=== PATIENT | female | born 1930 | race Caucasian/White ===

== ENCOUNTER 2017-09-10 09:18 | Inpatient (IN) | payer OTHER ==
[~2017-09-10] VITALS: Ht 157.5 cm; Wt 70.0 kg
[2017-09-10 09:50] LABS: BASOPHILS % (AUTO) 0.1 % (0-1); EOSINOPHILS % (AUTO) 0.1 % (0-6); HEMATOCRIT 39.2 % (35.0-45.0); HEMOGLOBIN 13.3 g/dl (12.0-16.0); LYMPHOCYTES # (AUTO) 0.4 X10'3 (1.1-4.8); LYMPHOCYTES % (AUTO) 5.8 % (21-51); MEAN CORPUSCULAR HEMOGLOBIN 29.8 PG (27.0-31.0); MEAN CORPUSCULAR VOLUME 87.5 FL (78-98); MEAN PLATELET VOLUME 7.7 FL (7.4-10.4); MONOCYTES # (AUTO) 0.5 X10'3 (0-0.9); MONOCYTES % (AUTO) 6.8 % (2-12); NEUTROPHILS # (AUTO) 6.3 X10'3 (1.8-7.7); NEUTROPHILS % (AUTO) 87.2 % (42-75); PLATELET COUNT 219 X10'3 (140-440); RED BLOOD COUNT 4.48 X10'6 (4.20-5.60); RED CELL DISTRIBUTION WIDTH 13.5 % (11.5-14.5); WHITE BLOOD COUNT 7.2 X10'3 (4.5-11.0)
[2017-09-10 10:08] LABS: ALANINE AMINOTRANSFERASE 33 U/L (12-78); ALBUMIN 3.8 G/DL (3.4-5.0); ALBUMIN/GLOBULIN RATIO 1.2 (1.1-1.5); ALKALINE PHOSPHATASE 84 IU/L (46-116); ANION GAP 12 (8-16); ASPARTATE AMINO TRANSFERASE 26 U/L (10-37); BILIRUBIN,TOTAL 0.7 MG/DL (0.1-1.0); BLOOD UREA NITROGEN 13 MG/DL (7-18); BUN/CREATININE RATIO 14.4 (6.6-38.0); CALCIUM 8.8 MG/DL (8.5-10.1); CHLORIDE 103 MMOL/L (99-107); SODIUM 141 MMOL/L (135-145); TOTAL CARBON DIOXIDE 25.8 MMOL/L (24-32); TOTAL PROTEIN 7.1 G/DL (6.4-8.2); eGFR 59 ML/MIN
[2017-09-10 10:15] LABS: PLATELET ESTIMATE NORMAL; TOTAL CELLS COUNTED 100
[2017-09-10 10:38] LABS: GLUCOSE 138 MG/DL (70-104)
[2017-09-10] MEDS ORDERED: levoFLOXACIN-Levaquin 500mg/D5 100 ML IV ONE (12:00)
[2017-09-10] MEDS ORDERED: albuterol 2.5 MG/3 ML nebule NEB ONE (12:00)
[2017-09-10] MEDS ORDERED: TURM500C4 (12:24)
[2017-09-10] MEDS ORDERED: LEVO50TA PO (12:24)
[2017-09-10] MEDS ORDERED: ROSU5TAB18 (12:24)
[2017-09-10] MEDS ORDERED: FISH12002 PO (12:24)
[2017-09-10] MEDS ORDERED: SERIN IH (12:24)
[2017-09-10] MEDS ORDERED: ASPI-1265 PO (12:24)
[2017-09-10] MEDS ORDERED: AMLO5TAB4 PO (12:24)
[2017-09-10] MEDS ORDERED: OSC500T PO (12:24)
[2017-09-10] MEDS ORDERED: ALT5C PO (12:24)
[2017-09-10] MEDS ORDERED: UBID100C16 PO (12:24)
[2017-09-10] MEDS ORDERED: MELA3TAB70 (12:24)
[2017-09-10] MEDS ORDERED: GABA600T2 PO (12:24)
[2017-09-10] MEDS ORDERED: MAGN400C PO (12:24)
[2017-09-10] MEDS ORDERED: ACET-2119 PO (12:24)
[2017-09-10] MEDS ORDERED: IBUP-1984 PO (12:24)
[2017-09-10] MEDS ORDERED: VIT1CAPS46 (12:27)
[2017-09-10] MEDS ORDERED: CYAN100097 PO (12:27)
[2017-09-10] MEDS ORDERED: oseltamivir phos 75mg capsule PO ONE (12:55)
[2017-09-10] MEDS ORDERED: ipratropium/albuterol 3ml nebule NEB PRN (13:20)
[2017-09-10] MEDS ORDERED: mag hydrox/Alum hydrox/simeth 30ml oral suspension PO PRN (13:20)
[2017-09-10] MEDS ORDERED: ondansetron/PF 4mg/2ml inj IV PRN (13:20)
[2017-09-10] MEDS ORDERED: acetaminophen 325mg tablet PO PRN ×3 (13:20→17:45)
[2017-09-10] MEDS ORDERED: HYDROcodone/acetaminophen 5mg/325mg tablet PO PRN (13:20)
[2017-09-10] MEDS ORDERED: magnesium hydroxide 30ml (MOM) UD suspension PO PRN (13:20)
[2017-09-10] MEDS: methylPREDNISolone sod succ/PF 40mg inj. IV SCH ×2 (13:45→20:07)
[2017-09-10 13:53] LABS: HEMOGLOBIN A1C 5.6 % (4.5-6.2)
[2017-09-10 15:00] VITALS: BP 116/54
[2017-09-10 18:00] VITALS: BP 117/61
[2017-09-10] MEDS ORDERED: SALMETEROL XINAFOATE IH SCH (20:00)
[2017-09-10] MEDS ORDERED: MAGNESIUM OXIDE PO SCH (20:00)
[2017-09-10] MEDS: magnesium oxide 400mg tablet PO SCH (20:08)
[2017-09-10] MEDS: oseltamivir phos 75mg capsule PO SCH (20:08)
[2017-09-10] MEDS: gabapentin 300mg capsule PO SCH (20:51)
[2017-09-10] MEDS ORDERED: albuterol 2.5 MG/3 ML nebule NEB SCH (21:00)
[2017-09-10] MEDS ORDERED: gabapentin 300mg capsule PO SCH (21:00)
[2017-09-10 22:00] VITALS: BP 121/59
[2017-09-11] MEDS: methylPREDNISolone sod succ/PF 40mg inj. IV SCH ×2 (02:09→07:51)
[2017-09-11 06:00] VITALS: BP 158/79
[2017-09-11] MEDS ORDERED: levoTHYROXINE 25mcg tablet PO SCH (07:00)
[2017-09-11 07:26] LABS: BASOPHILS % (AUTO) 0.3 % (0-1); EOSINOPHILS % (AUTO) 0 % (0-6); HEMATOCRIT 36.5 % (35.0-45.0); LYMPHOCYTES # (AUTO) 0.6 X10'3 (1.1-4.8); LYMPHOCYTES % (AUTO) 12.4 % (21-51); MEAN CORPUSCULAR HEMOGLOBIN 30.9 PG (27.0-31.0); MEAN CORPUSCULAR HGB CONC 35.6 % (33.0-36.5); MEAN CORPUSCULAR VOLUME 86.7 FL (78-98); MEAN PLATELET VOLUME 8.2 FL (7.4-10.4); MONOCYTES # (AUTO) 0.1 X10'3 (0-0.9); MONOCYTES % (AUTO) 3.1 % (2-12); NEUTROPHILS # (AUTO) 3.9 X10'3 (1.8-7.7); NEUTROPHILS % (AUTO) 84.2 % (42-75); PLATELET COUNT 193 X10'3 (140-440); RED CELL DISTRIBUTION WIDTH 12.1 % (11.5-14.5); WHITE BLOOD COUNT 4.6 X10'3 (4.5-11.0)
[2017-09-11 07:42] LABS: ALANINE AMINOTRANSFERASE 40 U/L (12-78); ALBUMIN 3.5 G/DL (3.4-5.0); ALKALINE PHOSPHATASE 77 IU/L (46-116); ANION GAP 10 (8-16); ASPARTATE AMINO TRANSFERASE 28 U/L (10-37); BILIRUBIN,TOTAL 0.4 MG/DL (0.1-1.0); BLOOD UREA NITROGEN 18 MG/DL (7-18); BUN/CREATININE RATIO 22.5 (6.6-38.0); CALCIUM 8.3 MG/DL (8.5-10.1); CHLORIDE 106 MMOL/L (99-107); CHOL/HDL RATIO 2.5 (0.00-4.99); CHOLESTEROL 183 MG/DL (0-200); GLUCOSE 187 MG/DL (70-104); HDL CHOLESTEROL 72 MG/DL (35-60); LDL CHOLESTEROL 102 MG/DL (50-100); POTASSIUM 3.9 MMOL/L (3.5-5.1); SODIUM 143 MMOL/L (135-145); TOTAL PROTEIN 6.9 G/DL (6.4-8.2); TRIGLYCERIDES 40 MG/DL (20-135); eGFR 68 ML/MIN
[2017-09-11] MEDS: gabapentin 300mg capsule PO SCH ×2 (07:55→13:46)
[2017-09-11] MEDS: oseltamivir phos 75mg capsule PO SCH (07:57)
[2017-09-11] MEDS ORDERED: cyanocobalamin 500mcg tablet PO SCH (08:00)
[2017-09-11] MEDS ORDERED: gabapentin 400mg capsule PO SCH (08:00)
[2017-09-11] MEDS ORDERED: aspirin 81mg tab.chew PO SCH (08:00)
[2017-09-11] MEDS ORDERED: amLODIPine 5mg tablet PO SCH (08:00)
[2017-09-11] MEDS ORDERED: calcium carbonate 500mg tablet PO SCH (08:00)
[2017-09-11] MEDS ORDERED: non-formulary drug (Levothyroxine Sodium (Synthroid) 1 TAB) PO SCH (08:00)
[2017-09-11] MEDS ORDERED: non-formulary drug (Fish Oil/Borage/Flax/Om3,6,9#1 (Omega 3-6-9 1,200 mg Softgel) 1 CAP) PO SCH (08:00)
[2017-09-11] MEDS ORDERED: RAMIPRIL 5 MG PO SCH (08:00)
[2017-09-11] MEDS ORDERED: levoFLOXACIN-Levaquin 500mg/D5 100 ML IV SCH (08:00)
[2017-09-11] MEDS ORDERED: non-formulary drug (Gabapentin 2 TAB) PO SCH (08:00)
[2017-09-11 10:00] VITALS: BP 136/72
[2017-09-11] MEDS: magnesium oxide 400mg tablet PO SCH (10:15)
[2017-09-11] MEDS ORDERED: TAM75C PO (10:29)
[2017-09-12] MEDS ORDERED: LACTOBACILLUS RHAMNOSUS GG 15 billion unit sprinkle caps PO SCH (07:30)
== END 2017-09-11 13:00 | disposition home or self-care (01) | DRG 193 ==
LOC: ER 09:19 → ED HOLD 13:20 → EDBEDREQ 14:17 → ORTHO 4S 15:07
PROVIDERS: ADMIT Internal Medicine; ATTEND Internal Medicine
DX: J09.X2 Influenza due to identified novel influenza A virus with other respiratory manifestations (principal); J96.01 Acute respiratory failure with hypoxia; J44.1 Chronic obstructive pulmonary disease with (acute) exacerbation; G62.9 Polyneuropathy, unspecified; E03.9 Hypothyroidism, unspecified; E78.5 Hyperlipidemia, unspecified; G89.4 Chronic pain syndrome; I10 Essential (primary) hypertension; K21.9 Gastro-esophageal reflux disease without esophagitis; Z90.49 Acquired absence of other specified parts of digestive tract; Z88.1 Allergy status to other antibiotic agents; Z88.8 Allergy status to other drugs, medicaments and biological substances; Z79.899 Other long term (current) drug therapy; Z79.82 Long term (current) use of aspirin; Z87.891 Personal history of nicotine dependence
CPT/HCPCS: 36415; 71045; 80053; 80061; 83036; 83880; 84145; 85025; 87040; 87070; 87502; 87503; 94640; 94760; 96365; 99285; J1956; J2920; J3420; J7030